=== PATIENT | female | born 1990 | race Hispanic/Latino ===

== ENCOUNTER 2017-07-05 11:07 | Emergency (ER) | payer MEDICAID, OTHER ==
[2017-07-05 14:17] LABS: Bilirubin,Urine NEG (Negative); Blood,Urine LG (Negative); Color,Urine Yellow (Yellow); Mucus,Urine FEW /HPF; Nitrite,Urine NEG (Negative); Protein,Urine <15 mg/dL mg/dL (Negative); Urobilinogen,Urine < 2.0 mg/dL (<2.0)
[2017-07-05 14:18] LABS: HCG Qualitative,Urine Negative (Negative)
--- NOTE | 2017-07-05 18:37 | Emergency Department Report ---
HPI - General Chief Complaint: Pain General Time Seen by Provider: 07/05/17 18:36 - HPI HPI: Patient and here with right ankle pain and back pain pelvic pain ovarian cyst pain complain of nausea. She says she usually goes to the pain clinic but she change doctor as an appointment on next Tuesday and she said the doctor told her if she has pain to come to the emergency room for pain management. Negative fever or chills. Denies any diarrhea. She said her pain is chronic and she usually has a pain management doctor but she switched and now she has to wait. Pain is 10 out of 10 all over and achy . Patient also just started her menses yesterday. Denies any sore throat. Denies any fever or chills. She says she took hofz-tan-iuarlot medication but it didn't help. ED Past Medical Hx - Past Medical History Previous Medical History?: Yes Hx Psychiatric Treatment: Yes (PTSD , ANXIETY , DEPRESSION) Additional medical history: Herniated discs.,ovarian cyst - Surgical History Past Surgical History?: Yes Additional Surgical History: Right foot fracture. SURGERY X 2 ( FUSION 09/25/14) - Family History Family history: no significant - Social History Smoking Status: Never Smoker Substance Use Type: None - Medications Home Medications: Home Medications Medication Instructions Recorded Confirmed Last Taken Type Effexor 75 mg PO DAILY 08/24/14 08/28/14 08/26/14 History Lexapro 20 mg PO DAILY 08/24/14 08/28/14 08/28/14 History cloNIDine 0.1 mg PO HS 08/24/14 08/28/14 08/27/14 History hydrOXYzine PAMOATE [Vistaril] 50 mg PO TID 08/24/14 08/28/14 08/25/14 History traZODone 100 mg PO HS 08/24/14 08/28/14 08/26/14 History HYDROcodone/APAP 5-325 [[place] 1 each PO Q6HR PRN #12 tablet 08/25/14 08/28/14 Unknown Rx 5/325] Ibuprofen [Motrin 800 MG tab] 800 mg PO Q8H PRN #30 tablet 08/25/14 08/28/14 Rx Metaxalone [Skelaxin] 800 mg PO TID #14 tablet 08/28/14 Unknown Rx HYDROcodone/APAP 5-325 [[place] 1 each PO Q6HR PRN #7 tablet 11/28/14 Unknown Rx 5-325 mg TAB] traMADol [Ultram] 50 mg PO Q6HR PRN #12 tablet 07/05/17 Unknown Rx ED Review of Systems ROS: Stated complaint: BACK, ABD, FOOT PAIN, ANXIETY Other details as noted in HPI Comment: All other systems reviewed and negative Constitutional: no symptoms reported Eyes: denies: eye pain ENT: denies: throat pain Respiratory: no symptoms reported Cardiovascular: denies: chest pain, palpitations, dyspnea on exertion, edema, syncope, paroxysmal nocturnal dyspnea Gastrointestinal: abdominal pain, nausea. denies: vomiting, diarrhea, constipation Genitourinary: denies: dysuria, frequency, hematuria, discharge Musculoskeletal: back pain, arthralgia, myalgia. denies: joint swelling Skin: denies: rash Neurological: denies: headache, numbness, paresthesias, confusion, abnormal gait , vertigo Physical Exam - Physical Exam Vital Signs: Vital Signs 07/05/17 11:51 Temperature 98.3 F Pulse Rate 108 H Respiratory 18 Rate Blood Pressure 157/87 O2 Sat by Pulse 100 Oximetry Vital Signs 07/05/17 07/05/17 11:51 20:39 Temperature 98.3 F Pulse Rate 108 H 92 H Respiratory 18 Rate Blood Pressure 157/87 O2 Sat by Pulse 100 Oximetry ED Course Vital Signs 07/05/17 11:51 Temperature 98.3 F Pulse Rate 108 H Respiratory 18 Rate Blood Pressure 157/87 O2 Sat by Pulse 100 Oximetry Vital Signs 07/05/17 07/05/17 11:51 20:39 Temperature 98.3 F Pulse Rate 108 H 92 H Respiratory 18 Rate Blood Pressure 157/87 O2 Sat by Pulse 100 Oximetry - Reevaluation(s) Reevaluation #1: 07/05/17 20:40 Patient received [place] 5/325 2 tablets, Zofran 8 mg and Toradol 60 mg emergency room. ED Medical Decision Making - Medical Decision Making ED course: Should have for pain management because she says she switched doctor and has an appointment next week. She is having generalized pain and cramping to her pelvic area. Patient was given Zofran 8 mg ODT, Toradol 60 mg IM and 5/ 325 2 tablets in emergency room. I discussed with her she will need to follow up with her pain management doctor for management of chronic pain. Patient discharged home with prescription for Ultram 50 mg #12 tablets and to keep her appointment with her doctor next week. She voiced understanding and and discharged home with her family. Critical care attestation.: If time is entered above; I have spent that time in minutes in the direct care of this critically ill patient, excluding procedure time. ED Disposition Clinical Impression: Musculoskeletal pain, Nausea alone Disposition: DC- TO HOME OR SELFCARE Is pt being admited?: No Does the pt Need Aspirin: No Condition: Stable Instructions: Musculoskeletal Pain (ED), Chronic Pain (ED) Additional Instructions: Please follow up with a primary care physician and also a pain management for management of chronic pain Take medication as prescribed Increase your fluid intake Prescriptions: traMADol [Ultram] 50 mg PO Q6HR PRN #12 tablet PRN Reason: Pain Referrals: JOSIANE AYALA MD [Primary Care Provider] - 2-3 Days
[2017-07-05] MEDS ORDERED: TORADOL IM ONE (19:55)
[2017-07-05] MEDS ORDERED: ZOFRAN ODT PO ONE (19:55)
[2017-07-05] MEDS ORDERED: NORCO 5/325 PO ONE (19:56)
[2017-07-05 20:55] VITALS: BP 140/89
== END 2017-07-05 20:54 | disposition home or self-care (01) ==
LOC: ED 11:07
DX: M25.571 Pain in right ankle and joints of right foot (principal); R11.0 Nausea
CPT/HCPCS: 81001; 81025; 96372; 99283; J1885; Q0162